=== PATIENT | male | born 1980 | race Two or more races ===

== ENCOUNTER 2021-07-21 14:00 | Emergency (ER) | payer MEDICARE, OTHER ==
[~2021-07-21] VITALS: Ht 185.4 cm; Wt 90.3 kg
--- NOTE | 2021-07-21 14:14 | NUR ---
BIBRA39 FOR HYPERGLYCEMIA (BLOOD SUGAR READING "HI" AT THE SCENE" AND ABDOMINAL PAIN 01/15. THE PATIENT IS NOTED TO HAVE ILEOSTOMY BAG. ABDOMEN SOFT AND NON-DISTENDED. RESPIRATION REGULAR AND UNLABORED. ATTACHED TO THE MONITOR. WARM BLANKET PROVIDED FOR COMFORT. WILL CONTINUE TO MONITOR THE PATIENT.
[2021-07-21] MEDS ORDERED: HYDR-3980 PO (14:21)
[2021-07-21] MEDS ORDERED: MUPI22OI2 TP (14:21)
[2021-07-21] MEDS ORDERED: APIX2.5T PO (14:21)
[2021-07-21] MEDS ORDERED: MELA5TAB PO (14:21)
[2021-07-21] MEDS ORDERED: DIVA500T2 PO (14:21)
[2021-07-21] MEDS ORDERED: VENL150T PO (14:21)
[2021-07-21] MEDS ORDERED: TRAZ-182 PO (14:21)
[2021-07-21] MEDS ORDERED: FAMO20TA8 PO (14:21)
[2021-07-21] MEDS ORDERED: LISI10TA29 PO (14:21)
[2021-07-21] MEDS ORDERED: COLL30OI TP (14:21)
[2021-07-21] MEDS ORDERED: GLIP2.5T3 PO (14:21)
[2021-07-21] MEDS ORDERED: INSU100V7 SQ (14:21)
[2021-07-21] MEDS ORDERED: LINA5TAB PO (14:21)
[2021-07-21] MEDS ORDERED: MULT-447 PO (14:21)
[2021-07-21] MEDS ORDERED: INSU100V27 SQ (14:21)
[2021-07-21] MEDS ORDERED: CLON1TAB12 PO (14:21)
[2021-07-21] MEDS ORDERED: LORA-259 PO (14:21)
[2021-07-21] MEDS ORDERED: RISP0.2515 PO (14:21)
--- NOTE | 2021-07-21 14:48 | NUR ---
DR ARMSTRONG AT THE BEDSIDE
[2021-07-21] MEDS ORDERED: IV NS 0.9% 1,000 ML IV ONE ×2 (15:00→16:30)
--- NOTE | 2021-07-21 15:17 | NUR ---
Purnima linn in ED - 07/21/21 at 1519 by FRANCIS IV LINE IS ESTABLISHED, BLOOD SPECIMEN COLLECTED AND SENT TO THE LAB. THE LINE IS SALINE LOCKED.
[2021-07-21 15:20] LABS: BASOPHILS % (AUTO) 0.4 % (0.0-2.0); EOSINOPHILS % (AUTO) 0.4 % (0.0-6.0); HEMATOCRIT 38 % (39-51); HEMOGLOBIN 12.3 g/dL (13.5-17.5); LYMPHOCYTES # (AUTO) 0.6 K/uL (0.8-4.8); LYMPHOCYTES % (AUTO) 8.4 % (20.0-44.0); MEAN CORPUSCULAR HGB CONC 33 g/dl (31.0-36.0); MEAN CORPUSCULAR VOLUME 84 fL (80-96); MONOCYTES # (AUTO) 0.5 K/uL (0.1-1.30); MONOCYTES % (AUTO) 7.2 % (2.0-12.0); NEUTROPHILS # (AUTO) 5.9 K/uL (1.8-8.9); NEUTROPHILS % (AUTO) 83.6 % (43.0-81.0); PLATELET COUNT (AUTO) 399 K/uL (150-450); RED BLOOD CELL COUNT(AUTO) 4.47 MIL/uL (4.5-6.0); WHITE BLOOD COUNT (AUTO) 7.1 K/uL (4.3-11.0)
[2021-07-21 15:40] LABS: ALBUMIN 3.2 g/dL (3.4-5.0); BILIRUBIN,DIRECT 0.1 mg/dL (0.0-0.2); BILIRUBIN,TOTAL 0.3 mg/dL (0.2-1.0); CALCIUM, SERUM 8.1 mg/dL (8.5-10.1); POTASSIUM 4.5 mmol/L (3.5-5.1); TOTAL PROTEIN, SERUM 7.2 g/dL (6.4-8.2)
[2021-07-21 16:11] LABS: ABG BASE EXCESS -0.3 mmol/L; ABG PCO2 40.9 mmHg (35.0-45.0); ABG PH 7.396 (7.350-7.450); ABG PO2 36.9 mmHg (75.0-100.0); COHb 5.5 % (0.5-1.5); MetHb 0.4 % (0.0-1.5); O2Hb 70.1 % (94.0-97.0); SITE, ABG Other; VENT MODE, BG room air
[2021-07-21 17:29] LABS: BILIRUBIN,URINE NEGATIVE (NEGATIVE); COLOR,URINE YELLOW (YELLOW); LEUKOCYTE ESTERASE ,URINE NEGATIVE (NEGATIVE); NITRITE, URINE NEGATIVE (NEGATIVE); PROTEIN,URINE NEGATIVE (NEGATIVE); UGLUCOSE >=1000 mg/dL (NEGATIVE); UROBILINOGEN,URINE 0.2 EU/dL (0.2)
[2021-07-21] MEDS ORDERED: INSULIN REGULAR, HUMAN 100 UNIT/ML 10 ML VIAL SQ ONE (18:00)
[2021-07-21] MEDS ORDERED: INSULIN REGULAR, HUMAN 100 UNIT/ML 10 ML VIAL ONE (18:11)
--- NOTE | 2021-07-21 18:33 | NUR ---
CALLED [facility] AND SET UP [facility] TRANPORT BACK [facility]. ETA [phone]
--- NOTE | 2021-07-21 18:55 | NUR ---
463 bs, made aware
--- NOTE | 2021-07-21 19:06 | NUR ---
REPORT GIVEN TO CAITLIN FROM [facility]
--- NOTE | 2021-07-21 19:40 | NUR ---
[facility] AT BED SIDE TO SCALE CLERK THE PT
--- NOTE | 2021-07-21 19:55 | NUR ---
patient being transferred via ambulance
[2021-07-21 20:03] VITALS: BP 133/88
== END 2021-07-21 20:04 | disposition home or self-care (01) ==
LOC: ER 14:08
DX: R73.9 Hyperglycemia, unspecified (principal); D64.9 Anemia, unspecified; Z88.0 Allergy status to penicillin; Z79.899 Other long term (current) drug therapy; Z86.73 Personal history of transient ischemic attack (TIA), and cerebral infarction without residual deficits
CPT/HCPCS: 36415; 36600; 80048; 80076; 81003; 82010; 82803; 82962 ×4; 83690; 85025; 96360; 96361; 99283; J1815; J7030 ×3

== ENCOUNTER 2022-08-23 16:09 | Emergency (ER) | payer MEDICARE, OTHER ==
[~2022-08-23] VITALS: Ht 188 cm; Wt 79.4 kg
[~2022-08-23 16:09] MED LIST: APIX2.5T PO; CLON1TAB12 PO; COLL30OI TP; DIVA500T2 PO; FAMO20TA8 PO; GLIP2.5T3 PO; HYDR-3980 PO; INSU100V27 SQ; INSU100V7 SQ; LINA5TAB PO; LISI10TA29 PO; LORA-259 PO; MELA5TAB PO; MULT-447 PO; MUPI22OI2 TP; RISP0.2515 PO; TRAZ-182 PO; VENL150T PO
[2022-08-23 17:28] LABS: BASOPHILS % (AUTO) 0.5 % (0.0-2.0); EOSINOPHILS % (AUTO) 1.5 % (0.0-6.0); HEMATOCRIT 39 % (39-51); HEMOGLOBIN 12.6 g/dL (13.5-17.5); LYMPHOCYTES # (AUTO) 0.8 K/uL (0.8-4.8); LYMPHOCYTES % (AUTO) 18.5 % (20.0-44.0); MEAN CORPUSCULAR HGB CONC 32 g/dl (31.0-36.0); MEAN CORPUSCULAR VOLUME 81 fL (80-96); MONOCYTES # (AUTO) 0.4 K/uL (0.1-1.30); MONOCYTES % (AUTO) 8.7 % (2.0-12.0); NEUTROPHILS # (AUTO) 3.2 K/uL (1.8-8.9); NEUTROPHILS % (AUTO) 70.8 % (43.0-81.0); PLATELET COUNT (AUTO) 373 K/uL (150-450); RED BLOOD CELL COUNT(AUTO) 4.84 MIL/uL (4.5-6.0); WHITE BLOOD COUNT (AUTO) 4.5 K/uL (4.3-11.0)
[2022-08-23 18:08] LABS: ALBUMIN 3.5 g/dL (3.4-5.0); BILIRUBIN,DIRECT 0.1 mg/dL (0.0-0.2); BILIRUBIN,TOTAL 0.4 mg/dL (0.2-1.0); CALCIUM, SERUM 8.4 mg/dL (8.5-10.1); CREATININE 0.8 mg/dL (0.6-1.3); POTASSIUM 3.5 mmol/L (3.5-5.1); TOTAL PROTEIN, SERUM 7.5 g/dL (6.4-8.2)
[2022-08-23 19:30] LABS: BILIRUBIN,URINE NEGATIVE (NEGATIVE); COLOR,URINE YELLOW (YELLOW); LEUKOCYTE ESTERASE ,URINE NEGATIVE (NEGATIVE); NITRITE, URINE NEGATIVE (NEGATIVE); PROTEIN,URINE NEGATIVE (NEGATIVE); UGLUCOSE NEGATIVE (NEGATIVE); UROBILINOGEN,URINE 0.2 EU/dL (0.2)
[2022-08-23 20:39] VITALS: BP 121/76
[2022-08-24] MEDS ORDERED: HYDR-4303 PO (17:30)
[2022-08-24] MEDS ORDERED: INSU100V3 SQ ×2 (17:30)
[2022-08-24] MEDS ORDERED: ASCO-352 PO (17:30)
[2022-08-24] MEDS ORDERED: ACET-868 PO (17:30)
[2022-08-24] MEDS ORDERED: POVI3780 TP (17:30)
[2022-08-24] MEDS ORDERED: GINGKO BILOBA PO (17:30)
[2022-09-01] MEDS ORDERED: LEVO250T59 PO (13:13)
== END 2022-08-23 20:39 ==
LOC: ER 16:15
DX: K80.20 Calculus of gallbladder without cholecystitis without obstruction (principal); R10.31 Right lower quadrant pain; R19.5 Other fecal abnormalities; I10 Essential (primary) hypertension; E11.9 Type 2 diabetes mellitus without complications; F20.9 Schizophrenia, unspecified; F31.9 Bipolar disorder, unspecified; F41.9 Anxiety disorder, unspecified; Z93.2 Ileostomy status; Z88.0 Allergy status to penicillin; Z79.4 Long term (current) use of insulin; Z79.899 Other long term (current) drug therapy
CPT/HCPCS: 36415; 80048-TC; 80076-TC; 82962-TC; 83690-TC; 85025-TC

== ENCOUNTER 2022-08-24 16:04 | Inpatient (IN) | payer MEDICARE, OTHER ==
[~2022-08-24] VITALS: Ht 188 cm; Wt 88.9 kg
--- NOTE | 2022-08-24 16:30 | NUR ---
established iv line 20 g left lower arm ,
--- NOTE | 2022-08-24 16:32 | NUR ---
blood sample obtained sent to lab
--- NOTE | 2022-08-24 16:35 | NUR ---
urine sample obtained sent to lab
--- NOTE | 2022-08-24 17:00 | NUR ---
covid swab taken
[2022-08-24 17:09] LABS: BASOPHILS % (AUTO) 0.3 % (0.0-2.0); EOSINOPHILS % (AUTO) 1.5 % (0.0-6.0); HEMATOCRIT 37 % (39-51); HEMOGLOBIN 11.9 g/dL (13.5-17.5); LYMPHOCYTES # (AUTO) 0.8 K/uL (0.8-4.8); LYMPHOCYTES % (AUTO) 17.8 % (20.0-44.0); MEAN CORPUSCULAR HGB CONC 32 g/dl (31.0-36.0); MEAN CORPUSCULAR VOLUME 80 fL (80-96); MONOCYTES # (AUTO) 0.4 K/uL (0.1-1.30); MONOCYTES % (AUTO) 9.5 % (2.0-12.0); NEUTROPHILS # (AUTO) 3.3 K/uL (1.8-8.9); NEUTROPHILS % (AUTO) 70.9 % (43.0-81.0); PLATELET COUNT (AUTO) 344 K/uL (150-450); RED BLOOD CELL COUNT(AUTO) 4.62 MIL/uL (4.5-6.0); WHITE BLOOD COUNT (AUTO) 4.7 K/uL (4.3-11.0)
--- NOTE | 2022-08-24 17:16 | NUR ---
MOVE SHEET SUBMITTED.
[2022-08-24 17:25] LABS: ALBUMIN 3.3 g/dL (3.4-5.0); BILIRUBIN,DIRECT 0.1 mg/dL (0.0-0.2); BILIRUBIN,TOTAL 0.4 mg/dL (0.2-1.0); CALCIUM, SERUM 8.4 mg/dL (8.5-10.1); CREATININE 0.7 mg/dL (0.6-1.3); POTASSIUM 3.7 mmol/L (3.5-5.1)
[2022-08-24] MEDS ORDERED: POVI3780 TP (17:30)
[2022-08-24] MEDS ORDERED: ACET-868 PO (17:30)
[2022-08-24] MEDS ORDERED: ASCO-352 PO (17:30)
[2022-08-24] MEDS ORDERED: INSU100V3 SQ ×2 (17:30)
[2022-08-24] MEDS ORDERED: GINGKO BILOBA PO (17:30)
[2022-08-24] MEDS ORDERED: HYDR-4303 PO (17:30)
[2022-08-24 17:38] LABS: BILIRUBIN,URINE NEGATIVE (NEGATIVE); COLOR,URINE YELLOW (YELLOW); LEUKOCYTE ESTERASE ,URINE NEGATIVE (NEGATIVE); NITRITE, URINE NEGATIVE (NEGATIVE); PROTEIN,URINE NEGATIVE (NEGATIVE); UGLUCOSE 3+ mg/dL (NEGATIVE); UROBILINOGEN,URINE 0.2 EU/dL (0.2)
[2022-08-24 18:03] LABS: RBC,URINE NONE SEEN /HPF (0-2); WBC,URINE NONE SEEN /HPF (0-3)
[2022-08-24 18:06] LABS: BACTERIA,URINE None seen /HPF (None Seen); SQUAMOUS EPITHELIAL CELL,UR Rare /HPF (None Seen)
--- NOTE | 2022-08-24 18:14 | NUR ---
[facility] PAGED. AWAITING CALL BACK.
[2022-08-24] MEDS ORDERED: MORPHINE SULFATE INJ 2 MG/ML DISP.SYRIN ONE (18:59)
[2022-08-24] MEDS ORDERED: ZOLPIDEM TARTRATE 5 MG TABLET PO PRN (19:00)
[2022-08-24] MEDS ORDERED: ACETAMINOPHEN 325 MG TABLET PO PRN (19:00)
[2022-08-24] MEDS ORDERED: MAG HYDROX/AL HYDROX/SIMETH 30 ML UDC PO PRN (19:00)
[2022-08-24] MEDS ORDERED: ONDANSETRON HCL/PF 4 MG/2 ML VIAL IVP PRN (19:00)
[2022-08-24] MEDS ORDERED: MAGNESIUM HYDROXIDE 30 ML UDC PO PRN (19:00)
[2022-08-24] MEDS ORDERED: Z GUARD REMEDY 4 OZ OINT TP PRN (19:00)
[2022-08-24] MEDS ORDERED: MORPHINE SULFATE INJ 2 MG/ML DISP.SYRIN IV ONE (19:00)
--- NOTE | 2022-08-24 20:07 | NUR ---
REPORT GIVEN TO CHENG REAL
--- NOTE | 2022-08-24 20:25 | NUR ---
RN RECEIVING NOTE FROM ER PATIENT ARRIVED STABLE. A/OX2 (NAME, PLACE). NO S/S OF DISTRESS, BREATHING WITHOUT DIFFICULTY ON ROOM AIR. LFA #20 INTACT AND PATENT. NO PAIN NOTED. ALL QUESTIONS ANSWERED. PATIENT WAS ORIENTED TO THE UNIT, GIVEN CALL DOUGLAS AND INSTRUCTED ON ITS USE. ALL BELONGINGS ACCOUNTED FOR, LOGGED INTO SHEET, AND PLACED IN CHART. SAFETY MEASURES IN PLACE: BED LOCKED AND AT LOWEST POSITION, RAILS UP X2, CALL DOUGLAS WITHIN REACH. WILL CONTINUE TO MONITOR PATIENT.
--- NOTE | 2022-08-24 20:28 | NUR ---
TRANSFERRED TO BED 323 IN STABLE CONDITION
[2022-08-24] MEDS: IV NS 0.9% 1,000 ML IV PRN (21:44)
[2022-08-25 00:58] VITALS: BP 126/83
[2022-08-25 06:01] LABS: BASOPHILS % (AUTO) 0.7 % (0.0-2.0); EOSINOPHILS % (AUTO) 1.9 % (0.0-6.0); HEMATOCRIT 39 % (39-51); HEMOGLOBIN 12.6 g/dL (13.5-17.5); LYMPHOCYTES # (AUTO) 0.9 K/uL (0.8-4.8); LYMPHOCYTES % (AUTO) 22.9 % (20.0-44.0); MEAN CORPUSCULAR HGB CONC 32 g/dl (31.0-36.0); MEAN CORPUSCULAR VOLUME 81 fL (80-96); MONOCYTES # (AUTO) 0.4 K/uL (0.1-1.30); MONOCYTES % (AUTO) 10.5 % (2.0-12.0); NEUTROPHILS # (AUTO) 2.5 K/uL (1.8-8.9); PLATELET COUNT (AUTO) 326 K/uL (150-450)
[2022-08-25 06:24] LABS: CALCIUM, SERUM 8.3 mg/dL (8.5-10.1); CREATININE 0.7 mg/dL (0.6-1.3); PHOSPHORUS 3.5 mg/dL (2.5-4.9); POTASSIUM 4.1 mmol/L (3.5-5.1)
[2022-08-25 06:29] LABS: THYROID STIMULATING HORMONE 0.802 uIU/mL (0.358-3.74)
--- NOTE | 2022-08-25 06:29 | NUR ---
RN CLOSING NOTE PATIENT ASLEEP IN BED. A/X2 (NAME, PLACE). NO S/S OF DISTRESS, BREATHING WITHOUT DIFFICULTY ROOM AIR. LFA #20 INTACT AND PATENT W/ NS 75ML/HR. SAFETY MEASURES IN PLACE: BED LOCKED AND AT LOWEST POSITION, RAILS UP X2, CALL DOUGLAS WITHIN REACH. WILL ENDORSE TO DAY SHIFT FOR SUNNY.
--- NOTE | 2022-08-25 07:35 | NUR ---
RN OPENING NOTE RECEIVED PATIENT ASLEEP IN BED, EASILY BEING AROUSED. A/OX2. PT IS ON RA, BREATHING EVEN AND NON LABORED. NO S/S OF DISTRESS AND SHORTNESS OF BREATH NOTED. IV ACCESS LFA #20 INTACT AND PATENT W/ NS 75ML/HR. SAFETY MEASURES IN PLACE: BED IS LOCKED AND AT LOWEST POSITION, RAILS UP X2, CALL DOUGLAS WITHIN REACH. WILL CONTINUE TO MONITOR.
[2022-08-25 08:06] VITALS: BP 117/69
[2022-08-25] MEDS: PANTOPRAZOLE 40 MG TABLET.DR PO SCH (08:16)
[2022-08-25] MEDS: IV NS 0.9% 1,000 ML IV PRN (08:44)
[2022-08-25] MEDS ORDERED: ACETAMINOPHEN 325 MG TABLET PO PRN (11:00)
[2022-08-25] MEDS: HYDROCODONE/APAP 5/325MG TABLET PO PRN ×2 (12:59→22:24)
[2022-08-25] MEDS ORDERED: DEXTROSE 50%-WATER 50 ML DISP.SYRIN IV PRN (13:30)
--- NOTE | 2022-08-25 13:30 | NUR ---
RN NOTE PT BS CHECKED AT THIS TIME. THE RESULT IS 372, PER SLIDING SCALE, 15 UNITS OF INSULIN GIVEN TO PATIENT.
[2022-08-25] MEDS: BLOOD SUGAR DIAGNOSTIC 1 EACH STRIP VI SCH ×3 (13:45→21:39)
[2022-08-25] MEDS: *INSULIN REGULAR(HUMULIN R)HUM 100 UNIT/ML VIAL SQ PRN (13:47)
[2022-08-25 16:00] VITALS: BP 140/75
[2022-08-25] MEDS: FAMOTIDINE (20 MG) 20 MG TABLET PO SCH (16:44)
[2022-08-25] MEDS: LISINOPRIL (10MG) 10 MG TABLET PO SCH (16:45)
[2022-08-25] MEDS: APIXABAN 2.5 MG TABLET PO SCH (16:50)
[2022-08-25] MEDS ORDERED: GINGKO BILOBA PO SCH (17:00)
[2022-08-25] MEDS: DOCUSATE SODIUM 100 MG CAPSULE PO SCH (17:00)
[2022-08-25] MEDS: INSULIN REGULAR, HUMAN 100 UNIT/ML 3 ML VIAL SQ PRN (17:13)
[2022-08-25] MEDS: KETOROLAC TROMETHAMINE INJ 30 MG/ML VIAL IV PRN (18:10)
[2022-08-25 20:00] VITALS: BP 107/54
[2022-08-25] MEDS: INSULIN GLARGINE, 100 UNIT/ML CARTRIDGE SQ SCH (21:00)
--- NOTE | 2022-08-25 21:32 | NUR ---
RN NOTE PT BS CHECKED AT THIS TIME. THE RESULT IS 76, HOLD INSULIN LANTUS DOSE @2100. GAVE PATIENT SNACKS. WILL CONTINUE TO MONITOR.
[2022-08-25] MEDS: risperiDONE 1 MG TABLET PO SCH (22:08)
[2022-08-25] MEDS: TRAZODONE 50 MG TABLET PO SCH (22:08)
[2022-08-26] MEDS: IV NS 0.9% 1,000 ML IV PRN (04:16)
[2022-08-26 06:14] LABS: BASOPHILS % (AUTO) 0.6 % (0.0-2.0); EOSINOPHILS % (AUTO) 2.4 % (0.0-6.0); HEMATOCRIT 38 % (39-51); HEMOGLOBIN 12.3 g/dL (13.5-17.5); LYMPHOCYTES # (AUTO) 0.9 K/uL (0.8-4.8); LYMPHOCYTES % (AUTO) 23.3 % (20.0-44.0); MEAN CORPUSCULAR HGB CONC 32 g/dl (31.0-36.0); MEAN CORPUSCULAR VOLUME 81 fL (80-96); MONOCYTES # (AUTO) 0.4 K/uL (0.1-1.30); MONOCYTES % (AUTO) 9.9 % (2.0-12.0); NEUTROPHILS # (AUTO) 2.4 K/uL (1.8-8.9); NEUTROPHILS % (AUTO) 63.8 % (43.0-81.0); PLATELET COUNT (AUTO) 314 K/uL (150-450); RED BLOOD CELL COUNT(AUTO) 4.72 MIL/uL (4.5-6.0); WHITE BLOOD COUNT (AUTO) 3.8 K/uL (4.3-11.0)
[2022-08-26] MEDS: INSULIN REGULAR, HUMAN 100 UNIT/ML 3 ML VIAL SQ PRN ×3 (06:44→17:02)
[2022-08-26] MEDS: BLOOD SUGAR DIAGNOSTIC 1 EACH STRIP VI SCH ×4 (06:45→21:18)
--- NOTE | 2022-08-26 06:45 | NUR ---
RN CLOSING NOTE PATIENT RESTING IN BED. A/OX1-2. PT ON RA BREATHING EVEN AND NON LABORED. NO S/S OF DISTRESS AND SHORTNESS OF BREATH NOTED. IV ACCESS LFA #20 INTACT AND PATENT W/ NS 75ML/HR. WOUND CARE CARRIED OUT AND GOT WOUND CX. KEPT PT CLEAN AND DRY. PT HAS A COLOSTOMY BAG ON RLQ, HE WANTED TO EMPTIED THE COLOSTOMY BY HIMSELF. HE EMPTIED 3-4X DURING THE SHIFT. FALL AND SAFETY MEASURES IN PLACE, BED IN LOWEST AND LOCKED POSITION, CALL LIGHT AND TABLE WITHIN EASY REACH, SIDE RAILS UPX3. ALL NEEDS ATTENDED AND ANTICIPATED. WILL ENDORSE TO NEXT SHIFT.
--- NOTE | 2022-08-26 07:25 | NUR ---
MS RN OPENING NOTE PATIENT AWAKE IN BED, ALERT/ORIENTED X 2, PATIENT STABLE ON RA, NO S/S OF DISTRESS OR SOB NOTED, BREATHING EVEN AND UNLABORED. IV ACCESS ON LFA #20G INTACT AND FLUSHING WELL. COLOSTOMY BAG IN PLACE. SAFETY MEASURES IN PLACE: CALL LIGHT WITHIN REACH, SIDE RAILS UP X 2, BED LOCKED IN LOWEST POSITION. WILL CONTINUE TO MONITOR PATIENT
[2022-08-26 07:47] LABS: CALCIUM, SERUM 8.2 mg/dL (8.5-10.1); CREATININE 0.7 mg/dL (0.6-1.3); MAGNESIUM 1.8 mg/dL (1.8-2.4); PHOSPHORUS 4.2 mg/dL (2.5-4.9); POTASSIUM 3.8 mmol/L (3.5-5.1)
[2022-08-26] MEDS: PANTOPRAZOLE 40 MG TABLET.DR PO SCH (07:51)
[2022-08-26 07:59] VITALS: BP 112/50
[2022-08-26] MEDS: VENLAFAXINE XR 75 MG CAP.SR.24H PO SCH (08:09)
[2022-08-26] MEDS: glipiZIDE XL 2.5 MG TAB.OSM.24 PO SCH (08:12)
[2022-08-26] MEDS: MULTIVIT W/MINERALS 1 TAB TABLET PO SCH (08:13)
[2022-08-26] MEDS: DOCUSATE SODIUM 100 MG CAPSULE PO SCH ×2 (08:13→16:57)
[2022-08-26] MEDS: ASCORBIC ACID 500 MG TABLET PO SCH (08:13)
[2022-08-26] MEDS: FAMOTIDINE (20 MG) 20 MG TABLET PO SCH ×2 (08:13→16:56)
[2022-08-26] MEDS: LINAGLIPTIN 5 MG TABLET PO SCH (08:14)
[2022-08-26] MEDS: LISINOPRIL (10MG) 10 MG TABLET PO SCH ×2 (08:28→16:56)
[2022-08-26] MEDS: APIXABAN 2.5 MG TABLET PO SCH ×2 (08:33→16:58)
[2022-08-26] MEDS: DAKINS QUARTER STRENGTH (0.125%) 480 ML BOTTLE TOP SCH (09:37)
[2022-08-26] MEDS: INSULIN GLARGINE, 100 UNIT/ML CARTRIDGE SQ SCH ×2 (09:48→21:00)
[2022-08-26] MEDS: HYDROCODONE/APAP 5/325MG TABLET PO PRN ×2 (10:30→16:56)
[2022-08-26 15:54] VITALS: BP 132/86
[2022-08-26] MEDS: GLUCERNA SHAKE 237 ML CAN PO SCH (17:00)
--- NOTE | 2022-08-26 19:35 | NUR ---
MS RN CLOSING NOTE PATIENT RESTING IN BED. A/OX1-2. PT ON RA BREATHING EVEN AND NON LABORED. NO S/S OF DISTRESS AND SHORTNESS OF BREATH NOTED. IV ACCESS LFA #20 INTACT AND PATENT W/ NS 75ML/HR. WOUND CARE DONE KEPT PT CLEAN AND DRY. PT HAS A COLOSTOMY BAG ON RLQ, HE WANTED TO EMPTIED THE COLOSTOMY BY HIMSELF. HE EMPTIED 5-6X DURING THE SHIFT. FALL AND SAFETY MEASURES IN PLACE, BED IN LOWEST AND LOCKED POSITION, CALL LIGHT AND TABLE WITHIN EASY REACH, SIDE RAILS UPX3. ALL NEEDS ATTENDED. WILL ENDORSE TO INSOLE FILLER RN.
--- NOTE | 2022-08-26 19:40 | NUR ---
MS RN OPENING NOTE PATIENT AWAKE IN BED, ALERT/ORIENTED X 2, PT C/O OF PAIN AT THIS TIME. PATIENT STABLE ON RA, NO S/S OF DISTRESS OR SOB NOTED, BREATHING EVEN AND UNLABORED. IV ACCESS ON LFA #20G INTACT AND FLUSHING WELL. COLOSTOMY BAG IN PLACE. SAFETY MEASURES IN PLACE: CALL LIGHT WITHIN REACH, SIDE RAILS UP X 2, BED LOCKED IN LOWEST POSITION. WILL CONTINUE TO MONITOR PATIENT
[2022-08-26] MEDS: KETOROLAC TROMETHAMINE INJ 30 MG/ML VIAL IV PRN (20:01)
--- NOTE | 2022-08-26 20:06 | NUR ---
MS RN NOTE PATIENT C/O 7/10 ABDOMINAL PAIN. TORADOL 30 MG IV GIVEN ORDERED. PATIENT ALSO REFUSING TO BE CONNECTED TO IVF AT THIS TIME. WILL CONTINUE TO MONITOR PATIENT
[2022-08-26 20:19] VITALS: BP 119/71
--- NOTE | 2022-08-26 21:17 | NUR ---
MS RN NOTE PATIENT'S BLOOD SUGAR 87. HELD LANTUS 32 UNITS
[2022-08-26] MEDS: risperiDONE 1 MG TABLET PO SCH (21:24)
[2022-08-26] MEDS: TRAZODONE 50 MG TABLET PO SCH (21:24)
--- NOTE | 2022-08-26 22:11 | NUR ---
MS RN NOTE PATIENT CRYING AND VISIBLY IN PAIN. PATIENT REPORTING 10/10 RUQ ABDOMINAL PAIN DESPITE TORADOL 30 MG IV GIVEN 2 HOURS AGO. NOT ABLE TO GIVE ANY OTHER PRN PAIN MEDICATIONS AT THIS TIME. CONTACTED [employer] ATTACHER DR. NAM MENDOZA REGARDING THIS, WITH ORDER FOR PRN MORPHINE 4 MG Q4H FOR SEVERE PAIN. ORDER CONFIRMED AND CARRIED OUT
--- NOTE | 2022-08-26 22:33 | NUR ---
MS RN NOTE PATIENT REPORTING IMPROVEMENT IN ABDOMINAL PAIN, PATIENT NOW CALM AND NOT CRYING IN PAIN ANYMORE, ATTEMPTING TO SLEEP. STATES HE DOES NOT WANT MORPHINE AT THIS TIME. WILL CONTINUE TO MONITOR
[2022-08-27] MEDS: HYDROCODONE/APAP 5/325MG TABLET PO PRN ×2 (02:53→20:34)
[2022-08-27] MEDS: BLOOD SUGAR DIAGNOSTIC 1 EACH STRIP VI SCH ×4 (06:36→22:00)
[2022-08-27] MEDS: INSULIN REGULAR, HUMAN 100 UNIT/ML 3 ML VIAL SQ PRN ×3 (06:37→16:33)
--- NOTE | 2022-08-27 06:59 | NUR ---
MS RN CLOSING NOTE PATIENT SLEEPING IN BED, ALERT/ORIENTED X 2, PT ABLE TO MAKE NEEDS KNOWN. PATIENT STABLE ON RA, NO S/S OF DISTRESS OR SOB NOTED, BREATHING EVEN AND UNLABORED. IV ACCESS ON LFA #20G INTACT AND SALINE LOCKED, PT REFUSING TO BE CONNECTED TO IVF. COLOSTOMY BAG IN PLACE, PATIENT EMPTIES COLOSTOMY BAG HIMSELF X 4 TIMES THIS SHIFT. MEDICATIONS GIVEN ORDERED, PATIENT NEEDS MET THROUGHOUT SHIFT, PAIN MANAGED WITH PAIN MEDICINE. SAFETY MEASURES IN PLACE: CALL LIGHT WITHIN REACH, SIDE RAILS UP X 2, BED LOCKED IN LOWEST POSITION. WILL ENDORSE TO DAYSHIFT RN FOR CONTINUITY OF CARE
[2022-08-27 07:04] LABS: BASOPHILS % (AUTO) 0.3 % (0.0-2.0); EOSINOPHILS % (AUTO) 1.3 % (0.0-6.0); HEMATOCRIT 37 % (39-51); HEMOGLOBIN 12.1 g/dL (13.5-17.5); LYMPHOCYTES # (AUTO) 0.6 K/uL (0.8-4.8); LYMPHOCYTES % (AUTO) 13.5 % (20.0-44.0); MEAN CORPUSCULAR HGB CONC 32 g/dl (31.0-36.0); MEAN CORPUSCULAR VOLUME 80 fL (80-96); MONOCYTES # (AUTO) 0.4 K/uL (0.1-1.30); NEUTROPHILS # (AUTO) 3.6 K/uL (1.8-8.9); NEUTROPHILS % (AUTO) 75.9 % (43.0-81.0); PLATELET COUNT (AUTO) 331 K/uL (150-450); RED BLOOD CELL COUNT(AUTO) 4.65 MIL/uL (4.5-6.0); WHITE BLOOD COUNT (AUTO) 4.7 K/uL (4.3-11.0)
--- NOTE | 2022-08-27 07:25 | NUR ---
RN OPENING NOTE RECEIVED PATIENT IN BED AWAKE, A/O X2, VERBALLY RESPONSIVE. NO SIGNS OF ACUTE DISTRESS NOTED. ON ROOM AIR, BREATHING EVEN AND UNLABORED. DENIES ANY PAIN OR DISCOMFORT AT THIS TIME. NOTED WITH IV ACCESS ON LEFT FOREARM #20G, INTACT AND PATENT, REFUSED TO BE CONNECTED TO IVF. NOTED WITH COLOSTOMY BAG INTACT WITH LIQUID BROWN STOOL. SAFETY MEASURE IN PLACE. BED IN LOW AND LOCKED POSITION. SIDE RAILS UP X2, CALL LIGHT PLACED WITHIN EASY REACH. WILL CONTINUE TO MONITOR PATIENT.
[2022-08-27 07:36] LABS: CALCIUM, SERUM 8.1 mg/dL (8.5-10.1); CREATININE 0.7 mg/dL (0.6-1.3); PHOSPHORUS 4.8 mg/dL (2.5-4.9); POTASSIUM 3.9 mmol/L (3.5-5.1)
[2022-08-27] MEDS: PANTOPRAZOLE 40 MG TABLET.DR PO SCH (08:04)
[2022-08-27] MEDS: GLUCERNA SHAKE 237 ML CAN PO SCH ×3 (08:19→17:26)
[2022-08-27] MEDS: FAMOTIDINE (20 MG) 20 MG TABLET PO SCH ×2 (08:19→16:34)
[2022-08-27] MEDS: glipiZIDE XL 2.5 MG TAB.OSM.24 PO SCH (08:19)
[2022-08-27] MEDS: LINAGLIPTIN 5 MG TABLET PO SCH (08:19)
[2022-08-27] MEDS: ASCORBIC ACID 500 MG TABLET PO SCH (08:20)
[2022-08-27] MEDS: MULTIVIT W/MINERALS 1 TAB TABLET PO SCH (08:20)
[2022-08-27] MEDS: VENLAFAXINE XR 75 MG CAP.SR.24H PO SCH (08:20)
[2022-08-27] MEDS: LISINOPRIL (10MG) 10 MG TABLET PO SCH ×2 (08:20→16:35)
[2022-08-27] MEDS: DOCUSATE SODIUM 100 MG CAPSULE PO SCH ×2 (08:21→16:35)
[2022-08-27] MEDS: APIXABAN 2.5 MG TABLET PO SCH ×2 (08:22→16:33)
[2022-08-27] MEDS: INSULIN GLARGINE, 100 UNIT/ML CARTRIDGE SQ SCH ×2 (08:30→21:20)
[2022-08-27] MEDS: DAKINS QUARTER STRENGTH (0.125%) 480 ML BOTTLE TOP SCH (08:32)
[2022-08-27 08:33] VITALS: BP 77/52
[2022-08-27 16:16] VITALS: BP 112/71
--- NOTE | 2022-08-27 18:50 | NUR ---
RN CLOSING NOTE PATIENT IN BED AWAKE, VERBALLY RESPONSIVE. NO SIGNS OF ACUTE DISTRESS NOTED. REMAINS STABLE ON ROOM AIR, BREATHING EVEN AND UNLABORED. DENIES ANY PAIN OR DISCOMFORT. IV ACCESS ON LEFT FOREARM #20G, INTACT AND PATENT, STILL REFUSED TO BE CONNECTED TO IVF. COLOSTOMY BAG INTACT WITH LIQUID BROWN STOOL. PATIENT EMPTIES COLOSTOMY BAG BY HIMSELF. SAFETY MEASURE IN PLACE. BED IN LOW AND LOCKED POSITION. SIDE RAILS UP X2, CALL LIGHT PLACED WITHIN EASY REACH. WILL ENDORSE TO NEXT SHIFT FOR CONTINUITY OF CARE.
--- NOTE | 2022-08-27 19:34 | NUR ---
MS REAL OPENING NOTES: RECEIVED PATIENT AWAKE IN BED, BED IN LOW POSITION CALL LIGHTS WITHIN REACH, NO COMPLAIN OF PAIN AND DISCOMFORT AT THIS TIME, ON ROOM AIR SATURATING WELL, NO SOB WAS OBSERVED, PATIENT IS A/OX4, AMBULATORY ABLE TO MAKE NEEDS KNOWN, IV LINE AT LEFT HAND #24 WITH ONGOING NSS@90ML/HR INFUSING WELL, PATIENT KEPT CLEAN AND DRY ALL NEEDS MET WILL CONTINUE TO MONITOR Addendum: 08/27/22 at 1937 by WAYNE KING RN PATIENT IV LINE AT LFA#20 WITH ONGOING NSS@75ML/HR INFUSING WELL, ON COLOTOMY BAG CLEAN, NO CHANGES IN BEHAVIOR HAS BEEN OBSERVED, WILL CONTINUE TO MONITOR.
[2022-08-27 20:00] VITALS: BP 120/72
[2022-08-27] MEDS: TRAZODONE 50 MG TABLET PO SCH (21:28)
[2022-08-27] MEDS: risperiDONE 1 MG TABLET PO SCH (21:28)
--- NOTE | 2022-08-27 22:14 | NUR ---
RN NOTES: BLOOD SUGAR-115/ NO REGULAR INSULIN GIVEN PER SLIDING SCALE, LONG ACTING INSULIN GIVEN SNACKS OF PUFFING AND SANDWICH GIVEN TO PATIENT
[2022-08-28] MEDS: MORPHINE SULFATE INJ 4 MG/ML DISP.SYRIN IV PRN ×3 (00:38→18:32)
[2022-08-28 05:47] LABS: BASOPHILS % (AUTO) 0.3 % (0.0-2.0); EOSINOPHILS % (AUTO) 1.7 % (0.0-6.0); HEMATOCRIT 40 % (39-51); HEMOGLOBIN 12.7 g/dL (13.5-17.5); LYMPHOCYTES # (AUTO) 1.1 K/uL (0.8-4.8); LYMPHOCYTES % (AUTO) 23.9 % (20.0-44.0); MEAN CORPUSCULAR HGB CONC 32 g/dl (31.0-36.0); MEAN CORPUSCULAR VOLUME 80 fL (80-96); MONOCYTES # (AUTO) 0.5 K/uL (0.1-1.30); MONOCYTES % (AUTO) 11.2 % (2.0-12.0); NEUTROPHILS # (AUTO) 2.9 K/uL (1.8-8.9); NEUTROPHILS % (AUTO) 62.9 % (43.0-81.0); PLATELET COUNT (AUTO) 352 K/uL (150-450); RED BLOOD CELL COUNT(AUTO) 4.91 MIL/uL (4.5-6.0); WHITE BLOOD COUNT (AUTO) 4.6 K/uL (4.3-11.0)
[2022-08-28 06:00] LABS: CALCIUM, SERUM 8.8 mg/dL (8.5-10.1); CREATININE 0.7 mg/dL (0.6-1.3); PHOSPHORUS 4.8 mg/dL (2.5-4.9); POTASSIUM 3.8 mmol/L (3.5-5.1)
[2022-08-28] MEDS: BLOOD SUGAR DIAGNOSTIC 1 EACH STRIP VI SCH ×4 (06:39→22:00)
--- NOTE | 2022-08-28 06:39 | NUR ---
RN NOTES: BLOOD SUGAR-52 NO IMNSULIN GIVEN, PATIENT GIVEN ORANGE JUICE WITH 3 SACHET REG SUGAR TO CHECK AFTER 30 MINUTES, PATIENT IS AROUSABLE Addendum: 08/28/22 at 0740 by WAYNE KING RN PATIENT BLOOD SUGAR AFTER 30 MINUTES BS-48 PUSH D 5050, PLUS INTAKE OF ORANGE JUICE WITH 3 SACHET OF SUGAR ENDORSE TO AM SHIFT NURSE, PATIENT REMAINS ALERT AND ORIENTED AT BS-48 ON MONITORING,
--- NOTE | 2022-08-28 07:06 | NUR ---
MS RN CLOSING NOTES; PATIENT SLEEP IN BED COMFORTABLY, AROUSABLE TO VERBAL STIMULI, BED IN LOW POSITION CALL LIGHTS WITHIN REACH, ON ROOM AIR SATURATING WELL, PATIENT IS A/OX 2-3 AMBULATORY WITH SUPERVISION LFA#20 WITH ONGOING NSS@75ML/HR ON AND OFF DUE TO PATIENT REFUSAL FOR HYDRATION, WITH RIGHT SIDED WEAKNESS ABLE TO MAKE NEEDS KNOWN, ON COLOSTOMY BAG CLEANSE AND REPLACED, KEPT CLEAN AND DRY ALL NEEDS MET ENDORSE TO INCOMING SHIFT.
--- NOTE | 2022-08-28 07:30 | NUR ---
RN MS NOTES PT IN BED, AWAKE, ALERT AND ORIENTED, NO CHANGE IN LOC, NOT IN DISTRESS, DENIES PAIN, SKIN WARM TO TOUCH, NO SOB, WILL CONTINUE TO MONITOR.
--- NOTE | 2022-08-28 07:52 | NUR ---
BLOOD SUGAR CHECK AFTER AFTER D5050 PUSH AND ORANGE JUICE IS 77 ENDORSE TO AM NURSE FOR MONITORING.
[2022-08-28 08:00] VITALS: BP 121/73
[2022-08-28] MEDS: MULTIVIT W/MINERALS 1 TAB TABLET PO SCH (08:39)
[2022-08-28] MEDS: LINAGLIPTIN 5 MG TABLET PO SCH (08:39)
[2022-08-28] MEDS: LISINOPRIL (10MG) 10 MG TABLET PO SCH ×2 (08:39→16:40)
[2022-08-28] MEDS: PANTOPRAZOLE 40 MG TABLET.DR PO SCH (08:40)
[2022-08-28] MEDS: GLUCERNA SHAKE 237 ML CAN PO SCH ×3 (08:40→16:40)
[2022-08-28] MEDS: glipiZIDE XL 2.5 MG TAB.OSM.24 PO SCH (08:40)
[2022-08-28] MEDS: VENLAFAXINE XR 75 MG CAP.SR.24H PO SCH (08:40)
[2022-08-28] MEDS: FAMOTIDINE (20 MG) 20 MG TABLET PO SCH ×2 (08:40→16:39)
[2022-08-28] MEDS: DOCUSATE SODIUM 100 MG CAPSULE PO SCH ×3 (08:40→16:42)
[2022-08-28] MEDS: ASCORBIC ACID 500 MG TABLET PO SCH (08:40)
[2022-08-28] MEDS: INSULIN GLARGINE, 100 UNIT/ML CARTRIDGE SQ SCH ×3 (08:52→22:54)
--- NOTE | 2022-08-28 08:53 | NUR ---
RN MS NOTES INSULIN HELD, PT HAD EPISODE OF HYPOGLYCEMIA, CURRENT BS 77.
[2022-08-28] MEDS: APIXABAN 2.5 MG TABLET PO SCH ×2 (09:00→16:42)
[2022-08-28] MEDS: DAKINS QUARTER STRENGTH (0.125%) 480 ML BOTTLE TOP SCH (11:13)
[2022-08-28] MEDS: INSULIN REGULAR, HUMAN 100 UNIT/ML 3 ML VIAL SQ PRN ×3 (11:52→22:58)
--- NOTE | 2022-08-28 12:30 | NUR ---
RN MS NOTES DR. BAI INFORMED OF PT'S EPISODES OF HYPOGLYCEMIA AND HYPERGLYCEMIA, ORDERED TO CHANGE HS DOSE OF LANTUS TO 20 UNITS, NOTED AND CARRIED OUT, PT IN BED, NO CHANGE IN LOC, EATING WELL, CONSUMED 100% OF HIS MEAL TRAY.
[2022-08-28] MEDS: HYDROCODONE/APAP 5/325MG TABLET PO PRN (15:40)
--- NOTE | 2022-08-28 15:51 | NUR ---
RN MS NOTES PT SEEN BY DR. BAI, PT HAS IRRITATION IN COLOSTOMY SITE, NOTED WITH MD SINCERE INFORMED, PLAN OF CARE DISCUSSED WITH PT.
[2022-08-28 16:00] VITALS: BP 127/75
--- NOTE | 2022-08-28 18:56 | NUR ---
RN MS NOTES PT IN BED, RESTING, PAIN MEDS GIVEN FOR PAIN MANAGEMENT, WOUND TREATMENT AND DRESSING CHANGE DONE TO LEFT FOOT WOUND, SEEN AND EXAMINED BY DR. BAI TODAY, BS CHECKED, INSULIN ADMINISTERED PER SLIDING SCALE ORDERED, AMBULATES TO THE BATHROOM WITH SLOW AND STEADY GAIT, COLOSTOMY CARE PROVIDED, ALL NEEDS ATTENDED.
[2022-08-28 20:00] VITALS: BP 130/68
--- NOTE | 2022-08-28 20:02 | NUR ---
MS RN OPENING NOTES; RECEIVED PATIENT SLEEP IN BED COMFORTABLY, AROUSABLE TO VERBAL STIMULI, BED IN LOW POSITION, CALL LIGHTS WITHIN REACH, NO COMPLAIN OF PAIN AND DISCOMFORT AT THIS TIME, ON ROOM AIR SATURATING WELL, PATIENT IS A/OX2-3 ABLE TO EXPRESS NEEDS AMBULATORY WITH SUPERVISION WITH RIGHT SIDED WEAKNESS, IV LINE AT LFA#20 WITH ONGOING NSS@75ML/HR INFUSING WELL, PATIENT KEPT CLEAN AND DRY ALL NEEDS MET WILL CONTINUE TO MONITOR.
[2022-08-28] MEDS: TRAZODONE 50 MG TABLET PO SCH (22:52)
[2022-08-28] MEDS: risperiDONE 1 MG TABLET PO SCH (22:52)
--- NOTE | 2022-08-28 23:02 | NUR ---
RN NOTES: BLOOD SUGAR-184/ PATIENT REFUSED INSULIN, BOTH REGULAR AND LONG ACTING EXPLAIN RISK AND BENEFITS BUT PATIENT REFUSED, PATIENT HAS HX OF HYPOGLYCEMIA EARLY IN THE MORNING DOWN TO 48 WILL CONTINUE TO MONITOR.
[2022-08-29 05:45] LABS: BASOPHILS % (AUTO) 0.4 % (0.0-2.0); EOSINOPHILS % (AUTO) 0.2 % (0.0-6.0); HEMATOCRIT 37 % (39-51); LYMPHOCYTES # (AUTO) 0.5 K/uL (0.8-4.8); LYMPHOCYTES % (AUTO) 12.2 % (20.0-44.0); MEAN CORPUSCULAR HGB CONC 33 g/dl (31.0-36.0); MEAN CORPUSCULAR VOLUME 80 fL (80-96); MONOCYTES # (AUTO) 0.4 K/uL (0.1-1.30); MONOCYTES % (AUTO) 10.8 % (2.0-12.0); NEUTROPHILS # (AUTO) 2.9 K/uL (1.8-8.9); NEUTROPHILS % (AUTO) 76.4 % (43.0-81.0); PLATELET COUNT (AUTO) 301 K/uL (150-450); RED BLOOD CELL COUNT(AUTO) 4.58 MIL/uL (4.5-6.0); WHITE BLOOD COUNT (AUTO) 3.8 K/uL (4.3-11.0)
[2022-08-29 05:57] LABS: CALCIUM, SERUM 8.3 mg/dL (8.5-10.1); CREATININE 0.8 mg/dL (0.6-1.3); MAGNESIUM 1.8 mg/dL (1.8-2.4); POTASSIUM 4.3 mmol/L (3.5-5.1)
[2022-08-29] MEDS: INSULIN REGULAR, HUMAN 100 UNIT/ML 3 ML VIAL SQ PRN ×3 (06:38→17:42)
[2022-08-29] MEDS: BLOOD SUGAR DIAGNOSTIC 1 EACH STRIP VI SCH ×4 (06:48→22:00)
--- NOTE | 2022-08-29 06:48 | NUR ---
RN NOTES BLOOD SUGAR- 342 12 UNITS REGULAR INSULIN GIVEN PER SLIDING SCALE.
--- NOTE | 2022-08-29 06:55 | NUR ---
MS RN CLOSING NOTES: PATIENT SLEEP IN BED COMFORTABLY, AROUSABLE TO VERBAL STIMULI, BED IN LOW POSITION CALL LIGHTS WITHIN REACH, NO COMPLAIN OF PAIN AND DISCOMFORT AT THIS TIME,ON ROOM AIR SATURATING WELL, PATIENT IS A/OX 2-3 AMBULATORY WITH SUPERVISION, WITH RIGHT SIDED WEAKNESS, ON COLOSTOMY BAG CLEAN PATIENT DRIED THE BAG BY HIMSELF OFFERED ASSISTANCE BUT REFUSED, IV LINE AT LFA#22 WITH ONGOING NSS@75ML/HR PATIENT REFUSED IV FLUIDS, KEPT CLEAN AND DRY ALL NEEDS MET ENDORSE TO INCOMING SHIFT.
[2022-08-29 07:00] VITALS: BP 112/65
--- NOTE | 2022-08-29 07:30 | NUR ---
PT RECEIVED RESTING COMFORTABLY IN BED. NO S/S OR C/O PAIN OR DISTRESS NOTED. SIDE RAILS UP X2, CALL LIGHT LEFT WITHIN REACH. WILL CONTINUE PLAN OF CARE.
[2022-08-29] MEDS: MULTIVIT W/MINERALS 1 TAB TABLET PO SCH (09:25)
[2022-08-29] MEDS: LINAGLIPTIN 5 MG TABLET PO SCH (09:25)
[2022-08-29] MEDS: PANTOPRAZOLE 40 MG TABLET.DR PO SCH (09:25)
[2022-08-29] MEDS: ASCORBIC ACID 500 MG TABLET PO SCH (09:25)
[2022-08-29] MEDS: APIXABAN 2.5 MG TABLET PO SCH ×2 (09:26→17:23)
[2022-08-29] MEDS: DOCUSATE SODIUM 100 MG CAPSULE PO SCH ×2 (09:26→17:21)
[2022-08-29] MEDS: FAMOTIDINE (20 MG) 20 MG TABLET PO SCH ×2 (09:27→17:18)
[2022-08-29] MEDS: VENLAFAXINE XR 75 MG CAP.SR.24H PO SCH (09:27)
[2022-08-29] MEDS: glipiZIDE XL 2.5 MG TAB.OSM.24 PO SCH (09:28)
[2022-08-29] MEDS: LISINOPRIL (10MG) 10 MG TABLET PO SCH ×2 (09:29→17:18)
[2022-08-29] MEDS: INSULIN GLARGINE, 100 UNIT/ML CARTRIDGE SQ SCH ×2 (09:43→22:00)
[2022-08-29] MEDS: DAKINS QUARTER STRENGTH (0.125%) 480 ML BOTTLE TOP SCH (09:45)
[2022-08-29] MEDS: GLUCERNA SHAKE 237 ML CAN PO SCH ×3 (09:46→17:23)
[2022-08-29 10:00] VITALS: BP 112/65
[2022-08-29] MEDS: KETOROLAC TROMETHAMINE INJ 30 MG/ML VIAL IV PRN (14:05)
--- NOTE | 2022-08-29 18:24 | NUR ---
CHANGE OF SHIFT REPORT PT RESTING COMFORTABLY IN BED. NO S/S OR C/O PAIN OR DISTRESS NOTED. SIDE RAILS UP X2, CALL LIGHT LEFT WITHIN REACH. NO SIGNIFICANT CHANGES SINCE PREVIOUS SHIFT. WILL GIVE REPORT TO RADHA REAL.
[2022-08-29] MEDS: HYDROCODONE/APAP 5/325MG TABLET PO PRN (19:55)
[2022-08-29 20:00] VITALS: BP 116/73
--- NOTE | 2022-08-29 20:00 | NUR ---
MS RN OPENING NOTES; RECEIVED PATIENT AWAKE IN BED, BED IN LOW POSITION CALL LIGHTS WITHIN REACH, NO COMPLAIN OF PAIN AND DISCOMFORT AT THIS TIME ON ROOM AIR SATURATING WELL, PATIENT IS A/OX4 AMBULATORY WITH RIGHT SIDED WEAKNESS, PATIENT HAS LFA IV LINE WITH 0.9NSS@75ML/HR , PATIENT REFUSED IV INFUSION, WITH RLQ COLOSTOMY TUBE CLEAN AND DRESSING CHANGE, ON PAIN MANAGEMENT, KEPT CLEAN AND DRY ALL NEEDS MET WILL CONTINUE TO MONITOR
[2022-08-29] MEDS: TRAZODONE 50 MG TABLET PO SCH (22:24)
[2022-08-29] MEDS: risperiDONE 1 MG TABLET PO SCH (22:24)
--- NOTE | 2022-08-29 22:38 | NUR ---
RN NOTES: BLOOD SUGAR-99 NO INSULIN GIVEN PER SLIDING SCALE, PATIENT WAS OFFERED SNACKS WILL MONITOR AND CHECK AFTER 1 HOUR
[2022-08-30] MEDS: BLOOD SUGAR DIAGNOSTIC 1 EACH STRIP VI SCH ×4 (06:47→21:34)
--- NOTE | 2022-08-30 06:47 | NUR ---
RN NOTES: BLOOD SUGAR-119/ NO INSULIN GIVEN PER SLIDING SCALE.
--- NOTE | 2022-08-30 06:56 | NUR ---
MS RN CLOSING NOTES: PATIENT SLEEP IN BED COMFORTABLY, BED IN LOW POSITION CALL LIGHTS WITHIN REACH, NO COMPLAIN OF PAIN AND DISCOMFORT AT THIS TIME, ON ROOM AIR SATURATING WELL, PATIENT IS A/OX3 ABLE TO MAKE NEEDS KNOWN, AMBULATORY WITH ASSIST, WITH COLOSTOMY DRAINED, OFFERED PATIENT TO REPLACE COLOSTOMY BAG EVERY TIME HE DRAINS IT PATIENT REFUSED, PATIENT REFUSED IV FLUIDS, PICTURE NOT TAKEN NO AVAILABLE CAMERA KEPT CLEAN AND DRY ALL NEEDS MET ENDORSE TO INCOMING SHIFT.
[2022-08-30 06:58] LABS: BASOPHILS % (AUTO) 0.4 % (0.0-2.0); HEMATOCRIT 37 % (39-51); HEMOGLOBIN 11.8 g/dL (13.5-17.5); LYMPHOCYTES # (AUTO) 0.7 K/uL (0.8-4.8); LYMPHOCYTES % (AUTO) 24.9 % (20.0-44.0); MEAN CORPUSCULAR HGB CONC 32 g/dl (31.0-36.0); MEAN CORPUSCULAR VOLUME 81 fL (80-96); MONOCYTES # (AUTO) 0.5 K/uL (0.1-1.30); MONOCYTES % (AUTO) 19.7 % (2.0-12.0); NEUTROPHILS # (AUTO) 1.4 K/uL (1.8-8.9); PLATELET COUNT (AUTO) 279 K/uL (150-450); RED BLOOD CELL COUNT(AUTO) 4.54 MIL/uL (4.5-6.0); WHITE BLOOD COUNT (AUTO) 2.7 K/uL (4.3-11.0)
[2022-08-30 07:05] LABS: CALCIUM, SERUM 8.2 mg/dL (8.5-10.1); CREATININE 0.7 mg/dL (0.6-1.3); MAGNESIUM 1.9 mg/dL (1.8-2.4); PHOSPHORUS 4.7 mg/dL (2.5-4.9); POTASSIUM 3.9 mmol/L (3.5-5.1)
[2022-08-30 08:00] VITALS: BP 100/68
[2022-08-30 08:21] LABS: BAND % (MANUAL) 4 % (0.0-5.0); EOSINOPHILS % (MANUAL) 4 % (0-4); LYMPHOCYTES % (MANUAL) 18 % (16-48); MONOCYTES % (MANUAL) 18 % (0-11.0); NEUTROPHILS % (MANUAL) 56 (42-76)
[2022-08-30] MEDS: PANTOPRAZOLE 40 MG TABLET.DR PO SCH (08:24)
[2022-08-30] MEDS: LINAGLIPTIN 5 MG TABLET PO SCH (08:24)
[2022-08-30] MEDS: glipiZIDE XL 2.5 MG TAB.OSM.24 PO SCH (08:24)
[2022-08-30] MEDS: LISINOPRIL (10MG) 10 MG TABLET PO SCH ×2 (08:25→16:44)
[2022-08-30] MEDS: MULTIVIT W/MINERALS 1 TAB TABLET PO SCH (08:25)
[2022-08-30] MEDS: ASCORBIC ACID 500 MG TABLET PO SCH (08:25)
[2022-08-30] MEDS: VENLAFAXINE XR 75 MG CAP.SR.24H PO SCH (08:25)
[2022-08-30] MEDS: DOCUSATE SODIUM 100 MG CAPSULE PO SCH ×2 (08:26→16:45)
[2022-08-30] MEDS: APIXABAN 2.5 MG TABLET PO SCH ×2 (08:28→16:46)
[2022-08-30] MEDS: INSULIN GLARGINE, 100 UNIT/ML CARTRIDGE SQ SCH ×2 (08:34→21:47)
[2022-08-30] MEDS: FAMOTIDINE (20 MG) 20 MG TABLET PO SCH ×2 (08:47→16:44)
[2022-08-30] MEDS: GLUCERNA SHAKE 237 ML CAN PO SCH ×3 (08:47→16:45)
[2022-08-30] MEDS: DAKINS QUARTER STRENGTH (0.125%) 480 ML BOTTLE TOP SCH (08:47)
--- NOTE | 2022-08-30 10:09 | NUR ---
WOUND CARE CONSULT; PT DOES NOT WANT TO REMOVE OSTOMY APPLIANCE AT THIS TIME BUT STATES THERE HAS BEEN A STINGING SENSATION AND THAT HE HAS A RASH. RECOMMENDATIONS MADE FOR SKIN PROTECTION. DISCUSSED WITH NURSING STAFF. SURGICAL (WOUND CARE) CONSULT CALLED TO DR LUIS WILHELM MD IN AGREEMENT WITH PLAN OF CARE.
[2022-08-30] MEDS: KETOROLAC TROMETHAMINE INJ 30 MG/ML VIAL IV PRN (11:05)
[2022-08-30] MEDS ORDERED: IV NS 0.9% 1,000 ML IV ONE (11:30)
[2022-08-30] MEDS: INSULIN REGULAR, HUMAN 100 UNIT/ML 3 ML VIAL SQ PRN ×2 (12:07→16:49)
[2022-08-30] MEDS: LEVOFLOXACIN (250MG) 250 MG TABLET PO SCH (12:36)
[2022-08-30 16:00] VITALS: BP 149/80
--- NOTE | 2022-08-30 20:17 | NUR ---
MS SEYMOUR INITIAL NOTES RECEIVED REPORT FROM AM NURSE AND SAW PATIENT EATING PUDDING AT THIS TIME. HE KNEW THAT HE NEEDS TO CHECK THE BLOOD SUGAR LATER. DENIES ANY PAIN OR ANY DISCOMFORT. IVF NS AT 75ML/HR INFUSING AT THIS TIME. ABLE TO VERBALIZED HIS NEEDS KEPT HIM COMFORTABLE AT ALL TIMES. WILL CONTINUE MONITORING. CALL LIGHT AT REACH.
[2022-08-30] MEDS: IV NS 0.9% 1,000 ML IV PRN (21:00)
[2022-08-30] MEDS: TRAZODONE 50 MG TABLET PO SCH (21:33)
[2022-08-30] MEDS: risperiDONE 1 MG TABLET PO SCH (21:34)
--- NOTE | 2022-08-30 21:45 | NUR ---
MS SEYMOUR NOTES BLOOD SUGAR CHECKED DONE CAME OUT 96, NO INSULIN COVERAGE GIVEN OF THIS TIME. SNACKS SERVED TO THE PATIENT. NO SIGNS OF HYPO GLYCEMIA NOTED. WILL CONTINUE MONITORING.
[2022-08-30] MEDS: *INSULIN REGULAR(HUMULIN R)HUM 100 UNIT/ML VIAL SQ PRN (21:49)
--- NOTE | 2022-08-30 23:57 | NUR ---
MS SEYMOUR NOTES PATIENT CALLED AND ASKING TO RE- CHECKED HIS BLOOD SUGAR , HE SAID HE STATES THAT HE FEELS THAT HIS BLOOD SUGAR IS LOW. AND CAME OUT 152. AFTER THAT PATIENT ASKED FOR SANDWICH AND JUICE, NO SIGNS OF HYPO/HYPERGLYCEMIA NOTED. WILL CONTINUE MONITORING.
[2022-08-31] MEDS: HYDROCODONE/APAP 5/325MG TABLET PO PRN ×3 (02:30→18:11)
--- NOTE | 2022-08-31 02:30 | NUR ---
MS INTERNIST MEDICAL DOCTOR MD NOTES NORCO TABLET GIVEN PER PT REQUESTED FOR HIS ABDOMINAL PAIN 01/15 , NO N/V NOTED. I ASK HIM IF HE CHANGE HIS COLOSTOMY BAG , LET ME KNOW SO I CAN HELP AND AT THE SAME TIME WILL RE ASSESS THE SKIN AREA. BUT PT REFUSED TO SHOW IT AT THIS TIME. WILL CONTINUE MONITORING.
--- NOTE | 2022-08-31 04:56 | NUR ---
MS SEYMOUR NOTES PT SLEEPING COMFORTABLY IN BED WITHOUT ANY SIGNS OF ACUTE DISTRESS NOTED. KEPT HIM WARM AND COMFORTABLE AT ALL TIMES. WILL CONTINUE MONITORING. PLACE CALL LIGHT AT REACH.
[2022-08-31 05:53] LABS: BASOPHILS % (AUTO) 0.4 % (0.0-2.0); HEMATOCRIT 38 % (39-51); HEMOGLOBIN 12.2 g/dL (13.5-17.5); LYMPHOCYTES # (AUTO) 0.7 K/uL (0.8-4.8); LYMPHOCYTES % (AUTO) 17.3 % (20.0-44.0); MEAN CORPUSCULAR HGB CONC 32 g/dl (31.0-36.0); MEAN CORPUSCULAR VOLUME 80 fL (80-96); MONOCYTES # (AUTO) 0.5 K/uL (0.1-1.30); MONOCYTES % (AUTO) 11.8 % (2.0-12.0); NEUTROPHILS # (AUTO) 2.7 K/uL (1.8-8.9); NEUTROPHILS % (AUTO) 68.5 % (43.0-81.0); PLATELET COUNT (AUTO) 319 K/uL (150-450); RED BLOOD CELL COUNT(AUTO) 4.77 MIL/uL (4.5-6.0); WHITE BLOOD COUNT (AUTO) 3.9 K/uL (4.3-11.0)
[2022-08-31 06:17] LABS: CALCIUM, SERUM 8.4 mg/dL (8.5-10.1); CREATININE 0.8 mg/dL (0.6-1.3); MAGNESIUM 1.9 mg/dL (1.8-2.4); POTASSIUM 4.5 mmol/L (3.5-5.1)
[2022-08-31] MEDS: BLOOD SUGAR DIAGNOSTIC 1 EACH STRIP VI SCH ×4 (06:57→21:38)
[2022-08-31] MEDS: INSULIN REGULAR, HUMAN 100 UNIT/ML 3 ML VIAL SQ PRN ×2 (06:59→16:58)
[2022-08-31 07:00] VITALS: BP 125/77
--- NOTE | 2022-08-31 07:36 | NUR ---
ms office services manager closing notes Pt woke up and blood sugar checked done , 98 no insulin given no signs of hypo glycemia noted. Pudding served for pt request. Stable mohit the night and all due meds given and all needs met. kept him warm and comfortable at all times. endorse to am nurse for continuity of care. place call light at reach.
--- NOTE | 2022-08-31 08:01 | NUR ---
RN OPENING NOTES RECEIVED PATIENT AWAKE IN BED, BED IN LOW POSITION CALL LIGHTS WITHIN REACH, NO COMPLAIN OF PAIN AND DISCOMFORT AT THIS TIME ON ROOM AIR SATURATING WELL, PATIENT IS A/OX4 AMBULATORY WITH RIGHT SIDED WEAKNESS, PATIENT HAS LFA IV LINE WITH 0.9NSS@75ML/HR , PATIENT REFUSED IV INFUSION, WITH RLQ COLOSTOMY TUBE CLEAN AND INTACT, ON PAIN MANAGEMENT NO SOB NOTED AT THIS TIME, KEPT SIDE RAILS UP X 2. KEPT WARM AND COMFORTABLE. WILL CONTINUE TO MONITOR
[2022-08-31] MEDS: glipiZIDE XL 2.5 MG TAB.OSM.24 PO SCH (08:20)
[2022-08-31] MEDS: PANTOPRAZOLE 40 MG TABLET.DR PO SCH (08:20)
[2022-08-31] MEDS: VENLAFAXINE XR 75 MG CAP.SR.24H PO SCH (08:20)
[2022-08-31] MEDS: APIXABAN 2.5 MG TABLET PO SCH ×2 (08:21→16:36)
[2022-08-31] MEDS: LISINOPRIL (10MG) 10 MG TABLET PO SCH ×2 (08:21→16:40)
[2022-08-31] MEDS: LINAGLIPTIN 5 MG TABLET PO SCH (08:22)
[2022-08-31] MEDS: MULTIVIT W/MINERALS 1 TAB TABLET PO SCH (08:22)
[2022-08-31] MEDS: DOCUSATE SODIUM 100 MG CAPSULE PO SCH ×2 (08:22→16:35)
[2022-08-31] MEDS: ASCORBIC ACID 500 MG TABLET PO SCH (08:22)
[2022-08-31] MEDS: FAMOTIDINE (20 MG) 20 MG TABLET PO SCH ×2 (08:22→16:35)
[2022-08-31] MEDS: GLUCERNA SHAKE 237 ML CAN PO SCH ×3 (08:37→16:39)
[2022-08-31] MEDS: INSULIN GLARGINE, 100 UNIT/ML CARTRIDGE SQ SCH ×2 (08:39→21:38)
[2022-08-31] MEDS: DAKINS QUARTER STRENGTH (0.125%) 480 ML BOTTLE TOP SCH (09:29)
[2022-08-31] MEDS: SILVER SULFADIAZINE CREAM 400 GM JAR TP SCH ×3 (09:30→16:44)
--- NOTE | 2022-08-31 10:40 | NUR ---
RN NOTES: WOUND CARE TREATMENT DONE, PT ABLE TO CHANGE HIS COLOSTOMY WITH NURSES MINIMAL HELP. PHOTO TAKEN AND FILED TO PT'S CHART.
[2022-08-31] MEDS: LEVOFLOXACIN (250MG) 250 MG TABLET PO SCH (11:08)
[2022-08-31 16:00] VITALS: BP 155/103
--- NOTE | 2022-08-31 17:02 | NUR ---
RN NOTES: PATIENT WANTED TO CONTACT HIS FAMILY, HIS UNCLE NAMED BOB AND COUSIN NIDA. WILL REFER TO CULINARY ARTIST IF THEY CAN HELP THE PT. INFORMED PATIENT AND HE IS VERY HAPPY.
--- NOTE | 2022-08-31 18:00 | NUR ---
RN NOTES: INFORMED OPHELIA SALAMANCA PT REFUSED IV FLUIDS, PT ABLE TO FINISH MEALS 75-100%, PT ON PO ANTIBIOTICS. OPHELIA SALAMANCA STATED "OKAY". DC THE IV FLUIDS.
--- NOTE | 2022-08-31 18:33 | NUR ---
RN CLOSING NOTES PATIENT RESTING IN BED. PATIENT ABLE TO VERBALIZED CONCERNS. WITH IV ACCESS ON LFA #22G WITH NS AT 75ML/HR INFUSING WELL. NO SIGNS OF PAIN AND SHORTNESS OF BREATH NOTED. WITH COLOSTOMY BAG ON THE RIGHT LOWER ABDOMEN CLEAN AND DRY. . NO SIGNS OF BLEEDING NOTED. NEEDS ATTENDED WELL. SAFETY MEASURE IN PLACE: BED IN LOWEST POSITION AND LOCKED, SIDE RAILS X 2, BED ALARM ON, CALL LIGHT AND TRAY TABLE W/I REACH OF PT. WILL ENDORSE SUNNY IN GLAZIER SUPERVISOR.
--- NOTE | 2022-08-31 19:15 | NUR ---
MS RN OPENING NOTES PATIENT IS AWAKE AND SITTING IN HIS BED. PATIENT IS ALERT AND ORIENTED, AO X 2. HE IS ON RA, TOLERATED WELL. NO S/S OF SOB OR DISTRESS. IV ACCESS IS AT HIS LFA, #22G; SL. FLUSHED WITH NS; PATIENT AND INTACT. PATIENT HAS COLOSTOMY BAG AT HIS RLQ; CLEAN AND INTACT. PATIENT INSIST TO CHANGE THE COLOSTOMY BAG BY HIMSELF. EXTRA NEW COLOSTOMY BAG PROVIDED TO THE PATIENT. PATIENT DENIES OF HAVING PAIN AT THIS MOMENT. SAFETY MEASURES ARE IN PLACE: BED IN LOWEST AND LOCKED POSITION; SIDE RAILS UP X 2; CALL LIGHT AND TABLE ARE WITHIN REACH. WILL CONTINUE MONITOR THE PATIENT'S CONDITION AND PROVIDE THE CARE PATIENT NEEDS.
[2022-08-31] MEDS: risperiDONE 1 MG TABLET PO SCH (21:17)
[2022-08-31] MEDS: TRAZODONE 50 MG TABLET PO SCH (21:17)
--- NOTE | 2022-08-31 21:25 | NUR ---
MS RN NOTE ACCU-CHEDorinda, BS IS 106. SNACKS PROVIDED TO THE PATIENT.
--- NOTE | 2022-09-01 06:10 | NUR ---
MS RN NOTE PATIENT'S BS IS 61. TWO APPLE JUICE BOX AND ONE TUNA SANDWICH PROVIDED TO THE PATIENT. PATIENT VERBALIZED HE WAS FINE.
[2022-09-01] MEDS: BLOOD SUGAR DIAGNOSTIC 1 EACH STRIP VI SCH ×3 (06:35→17:47)
--- NOTE | 2022-09-01 06:44 | NUR ---
MS RN CLOSING NOTE PATIENT IS AWAKE AND LYING IN HIS BED. PATIENT IS ALERT AND ORIENTED, AO X 2. HE IS ON RA, TOLERATED WELL. NO S/S OF SOB OR DISTRESS. IV ACCESS IS AT HIS L FA, #22G; SL. FLUSHED WITH NS; PATENT AND INTACT. PATIENT HAS COLOSTOMY BAG AT HIS RLQ; STOMA SITE IS PINK, CLEAN AND INTACT. PATIENT INSIST TO CHANGE THE COLOSTOMY BAG BY HIMSELF. EXTRA NEW COLOSTOMY BAG PROVIDED TO THE PATIENT. SAFETY MEASURES ARE IN PLACE: BED IN LOWEST AND LOCKED POSITION; SIDE RAILS UP X 2; CALL LIGHT AND TABLE ARE WITHIN REACH. WILL ENDORSE NEXT SHIFT NURSE FOR CONTINUING PATIENT CARE.
[2022-09-01 07:00] VITALS: BP 115/57
[2022-09-01] MEDS: PANTOPRAZOLE 40 MG TABLET.DR PO SCH (07:44)
--- NOTE | 2022-09-01 07:53 | NUR ---
RN OPENING NOTES PATIENT OPPOSITIONAL AT TIMES, PARANOID, GUARDED, PATIENT IS ALERT AND ORIENTED. HE IS ON RA. NO S/S OF SOB OR DISTRESS. IV ACCESS IS AT HIS LFA, #22G; PATIENT HAS COLOSTOMY BAG AT HIS RLQ; CLEAN AND INTACT. PATIENT DENIES PAIN AT THIS MOMENT. SAFETY MEASURES ARE IN PLACE: BED IN LOWEST AND LOCKED POSITION; SIDE RAILS UP X 2; CALL LIGHT AND TABLE ARE WITHIN REACH. WILL CONTINUE MONITOR / ASSIST
[2022-09-01] MEDS: GLUCERNA SHAKE 237 ML CAN PO SCH ×3 (08:17→17:19)
[2022-09-01] MEDS: glipiZIDE XL 2.5 MG TAB.OSM.24 PO SCH (08:28)
[2022-09-01] MEDS: VENLAFAXINE XR 75 MG CAP.SR.24H PO SCH (08:30)
[2022-09-01] MEDS: MULTIVIT W/MINERALS 1 TAB TABLET PO SCH (08:30)
[2022-09-01] MEDS: FAMOTIDINE (20 MG) 20 MG TABLET PO SCH ×2 (08:30→16:18)
[2022-09-01] MEDS: DOCUSATE SODIUM 100 MG CAPSULE PO SCH ×3 (08:31→16:25)
[2022-09-01] MEDS: LINAGLIPTIN 5 MG TABLET PO SCH (08:33)
[2022-09-01] MEDS: ASCORBIC ACID 500 MG TABLET PO SCH (08:34)
[2022-09-01] MEDS: APIXABAN 2.5 MG TABLET PO SCH ×2 (08:35→16:21)
[2022-09-01] MEDS: LISINOPRIL (10MG) 10 MG TABLET PO SCH ×2 (09:00→17:14)
[2022-09-01] MEDS: DAKINS QUARTER STRENGTH (0.125%) 480 ML BOTTLE TOP SCH (09:02)
[2022-09-01] MEDS: SILVER SULFADIAZINE CREAM 400 GM JAR TP SCH ×2 (09:21→17:00)
[2022-09-01] MEDS: INSULIN GLARGINE, 100 UNIT/ML CARTRIDGE SQ SCH (09:45)
[2022-09-01] MEDS: HYDROCODONE/APAP 5/325MG TABLET PO PRN (09:47)
[2022-09-01] MEDS: LEVOFLOXACIN (250MG) 250 MG TABLET PO SCH (10:50)
[2022-09-01] MEDS: INSULIN REGULAR, HUMAN 100 UNIT/ML 3 ML VIAL SQ PRN ×2 (11:47→17:47)
[2022-09-01] MEDS: MORPHINE SULFATE INJ 4 MG/ML DISP.SYRIN IV PRN (12:44)
[2022-09-01] MEDS ORDERED: LEVO250T59 PO (13:13)
[2022-09-01 16:00] VITALS: BP 141/93
[2022-09-01 17:14] VITALS: BP 141/93
--- NOTE | 2022-09-01 20:05 | NUR ---
MS PLUGGER MAN NOTES PATIENT SITTING ON BEDSIDE, A/O X3. ABLE TO AMBULATE WITH STEADY GAIT. BREATHING EVEN AND NON-LABORED ON ROOM AIR. NO C/O PAIN OR DISCOMFORT. NO IV ACCESS NOTED. DISCHARGE ORDER GIVEN BY DELIA SALAMANCA. DISCHARGE AND MEDICATION INSTRUCTIONS PROVIDED TO PATIENT. ALL BELONGINGS ACCOUNTED FOR. PICKED-UP BY 2 MALE EMT AT 1913. LEFT HOSPITAL VIA GURNEY IN STABLE CONDITION.
== END 2022-09-01 19:30 | DRG 623 ==
LOC: ER 16:08 → MED 19:58
PROVIDERS: ADMIT Student in an Organized Health Care Education/Training Program; ATTEND Nurse Practitioner Acute Care
PROC: 0JBR0ZZ Excision of Left Foot Subcutaneous Tissue and Fascia, Open Approach (ICD-10-PCS; principal; 2022-08-25)
DX: R62.7 Adult failure to thrive (principal); E44.1 Mild protein-calorie malnutrition; E87.1 Hypo-osmolality and hyponatremia; Z20.822 Contact with and (suspected) exposure to COVID-19; K59.00 Constipation, unspecified; Z86.73 Personal history of transient ischemic attack (TIA), and cerebral infarction without residual deficits; R56.9 Unspecified convulsions; I10 Essential (primary) hypertension; D64.9 Anemia, unspecified; F20.9 Schizophrenia, unspecified; R26.9 Unspecified abnormalities of gait and mobility; F31.9 Bipolar disorder, unspecified; F41.9 Anxiety disorder, unspecified; K58.9 Irritable bowel syndrome, unspecified; Z86.19 Personal history of other infectious and parasitic diseases; R13.10 Dysphagia, unspecified; Z93.2 Ileostomy status; Z88.0 Allergy status to penicillin; Z79.4 Long term (current) use of insulin; Z79.84 Long term (current) use of oral hypoglycemic drugs; Z79.01 Long term (current) use of anticoagulants; Z79.899 Other long term (current) drug therapy; Z93.3 Colostomy status; Z95.828 Presence of other vascular implants and grafts; Z68.25 Body mass index [BMI] 25.0-25.9, adult; Z89.412 Acquired absence of left great toe; Z90.49 Acquired absence of other specified parts of digestive tract; E11.621 Type 2 diabetes mellitus with foot ulcer; L97.529 Non-pressure chronic ulcer of other part of left foot with unspecified severity; Z89.422 Acquired absence of other left toe(s); G89.29 Other chronic pain; E11.649 Type 2 diabetes mellitus with hypoglycemia without coma; Z86.39 Personal history of other endocrine, nutritional and metabolic disease
CPT/HCPCS: 36415; 73630-TC; 80048-TC; 80076-TC; 81001; 82962-TC; 83690-TC; 83735-TC; 84100-TC; 84443-TC; 85025-TC; 85730-TC; 87081-TC; 87086-TC; 92526; 92611-TC; 97116-TC; 97530-TC; A6403; C9803; G0378; J1815; J1885; J2270; J7030